=== PATIENT | male | born 2000 | race American Indian/Alaskan Native ===

== ENCOUNTER 2021-03-20 21:42 | Emergency (ER) | payer OTHER ==
[2021-03-20 19:36] VITALS: BP 132/64
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
--- NOTE | 2021-03-20 21:16 | XRay Report ---
Left knee, 3 views HISTORY: Pain COMPARISON: None FINDINGS: No acute fracture, malalignment, or joint capsular distention. Soft tissues are unremarkabl e. Signer Name: Rafael Goncalves MD Signed: 03/20/2021 9:12 PM Workstation Name: [id number]
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
== END 2021-03-20 22:40 | disposition home or self-care (01) ==
LOC: ED 21:42
DX: M25.562 Pain in left knee (principal); R07.81 Pleurodynia; V49.88XA Car occupant (driver) (passenger) injured in other specified transport accidents, initial encounter; Y93.89 Activity, other specified; Y92.89 Other specified places as the place of occurrence of the external cause; Y99.8 Other external cause status
CPT/HCPCS: 99283